=== PATIENT | female | born 1975 | race Two or more races ===

== ENCOUNTER 2020-04-28 14:55 | Outpatient (CLI) | payer OTHER | END 2020-04-28 15:05 | disposition home or self-care (01) | LOC: RAD 14:55 | PROVIDERS: ATTEND Specialist | DX: I10 Essential (primary) hypertension (principal); I27.89 Other specified pulmonary heart diseases ==

== ENCOUNTER 2021-01-27 08:33 | Outpatient (CLI) | payer OTHER | END 2021-01-27 08:44 | disposition home or self-care (01) | LOC: SONOGRAMA 08:33 | PROVIDERS: ATTEND Internal Medicine | DX: L04.0 Acute lymphadenitis of face, head and neck (principal) ==